=== PATIENT | male | born 1985 | race Caucasian/White ===

== ENCOUNTER 2025-08-14 17:28 | Emergency (ER) | payer BC ==
[~2025-08-14] VITALS: Ht 185.4 cm; Wt 77.1 kg
[2025-08-14 17:31] VITALS: BP 121/76
[2025-08-14 17:55] LABS: PLATELET COUNT (AUTO) 195 K/uL (152-348); RED BLOOD CELL COUNT(AUTO) 5.06 MIL/uL (4.06-5.63); RED CELL DISTRIBUTION WIDTH 13.3 % (12.1-16.2); WHITE BLOOD COUNT (AUTO) 5.0 K/uL (3.6-10.2)
[2025-08-14 18:03] LABS: CREATININE 0.7 mg/dL (0.6-1.3); SODIUM SERUM 142.0 mmol/L (136-145); UREA NITROGEN, BLOOD 13.0 mg/dL (7-18)
[2025-08-14] MEDS: IV NORMAL SALINE 1000 ML BAG IV ONE (18:08)
[2025-08-14 18:09] LABS: ASPARTATE AMINOTRANSFERASE 54.0 U/L (15-37); TOTAL PROTEIN, SERUM 6.0 g/dL (6.4-8.2)
[2025-08-14] MEDS ORDERED: KETOROLAC TROMETHAMINE 30 MG INJ ONE (18:30)
[2025-08-14] MEDS: KETOROLAC TROMETHAMINE 30 MG INJ IVP ONE (18:32)
[2025-08-14] MEDS ORDERED: LORA-259 PO (18:33)
[2025-08-14] MEDS ORDERED: LEVE500T9 PO (18:33)
[2025-08-14 18:46] VITALS: BP 121/76; O2SAT 95
== END 2025-08-14 18:47 | disposition home or self-care (01) ==
LOC: ER 17:28
DX: G40.909 Epilepsy, unspecified, not intractable, without status epilepticus (principal); G93.89 Other specified disorders of brain; Z79.899 Other long term (current) drug therapy
CPT/HCPCS: 36415; 70450; 85025; A4606; A4663; J1885; J1953; J7040

== ENCOUNTER 2025-08-17 21:33 | Emergency (ER) | payer BC ==
[~2025-08-17] VITALS: Ht 185.4 cm; Wt 77.1 kg
[~2025-08-17 21:33] MED LIST: LEVE500T9 PO; LORA-259 PO
[2025-08-17 22:59] LABS: PLATELET COUNT (AUTO) 184 K/uL (152-348); RED BLOOD CELL COUNT(AUTO) 4.53 MIL/uL (4.06-5.63); RED CELL DISTRIBUTION WIDTH 13.2 % (12.1-16.2); WHITE BLOOD COUNT (AUTO) 5.3 K/uL (3.6-10.2)
[2025-08-17 23:07] LABS: CREATININE 0.8 mg/dL (0.6-1.3); SODIUM SERUM 141.0 mmol/L (136-145); UREA NITROGEN, BLOOD 15.0 mg/dL (7-18)
[2025-08-17 23:10] VITALS: BP 138/82
[2025-08-17 23:15] LABS: TOTAL PROTEIN, SERUM 6.2 g/dL (6.4-8.2)
[2025-08-17 23:19] LABS: ASPARTATE AMINOTRANSFERASE 48.0 U/L (15-37)
[2025-08-17 23:24] LABS: ETHANOL < 3 MG/DL (0-10)
[2025-08-17] MEDS ORDERED: LEVE500T9 PO (23:41)
[2025-08-17 23:53] VITALS: BP 128/90; TEMP 98; O2SAT 99
== END 2025-08-17 23:55 | disposition home or self-care (01) ==
LOC: ER 21:35
DX: G40.909 Epilepsy, unspecified, not intractable, without status epilepticus (principal); J45.909 Unspecified asthma, uncomplicated; Z79.899 Other long term (current) drug therapy; Z91.148 Patient's other noncompliance with medication regimen for other reason
CPT/HCPCS: 80076; 80048; 82962; 85025; 87040 ×2; 36415; 99284; 96365; 80320; J1953 ×2; A4606; A4663; G0480